=== PATIENT | female | born 1955 | race Caucasian/White ===

== ENCOUNTER 2020-12-10 11:50 | Emergency (ER) | payer MEDICARE, OTHER ==
[~2020-12-10 11:50] MED LIST: FLAGYL500 MG PO; LASIX40 MG PO; LEVOFLOXACIN500 MG PO; NORCO 5-325 TA1 EACH PO; NORFLEX 100 MG100 MG PO; PERCOCET 5/325 T1 EA PO; Voltaren Gel 1 % TOP; ZOFRAN4 MG PO
[2020-12-10 13:45] LABS: HEMOGLOBIN 12.4 gm/dl (12.3-15.3); RED BLOOD COUNT 3.57 M/UL (4.00-5.10); WHITE BLOOD COUNT 11.3 K/UL (4.5-11.0)
[2020-12-10 14:07] LABS: BUN/CREATININE RATIO 8 (0-10)
[2020-12-10] MEDS ORDERED: OMNICEF 300 MG300 MG PO (18:00)
[2020-12-10] MEDS ORDERED: DOXYCYCLINE HY100 MG PO (18:00)
[2020-12-10] MEDS ORDERED: LASIX40 MG PO (18:11)
== END 2020-12-10 19:23 | disposition home or self-care (01) ==
LOC: ER1 11:50
PROVIDERS: Physician Assistant
DX: J18.9 Pneumonia, unspecified organism (principal); L03.116 Cellulitis of left lower limb; L03.115 Cellulitis of right lower limb; E78.5 Hyperlipidemia, unspecified; I11.0 Hypertensive heart disease with heart failure; I50.9 Heart failure, unspecified; E03.9 Hypothyroidism, unspecified; Z20.822 Contact with and (suspected) exposure to COVID-19; F17.200 Nicotine dependence, unspecified, uncomplicated; Z90.710 Acquired absence of both cervix and uterus; Z90.49 Acquired absence of other specified parts of digestive tract; Z88.0 Allergy status to penicillin; Z85.828 Personal history of other malignant neoplasm of skin
CPT/HCPCS: 71045; 80053; 82550; 82553; 83874; 83880; 84439; 84443; 84484; 85025; 85379; 93005; 99285; U0002

== ENCOUNTER → 2021-01-26 | Outpatient (CLI) | payer MEDICARE, OTHER ==
[~2021-01-26] MED LIST changes: +AZITHROMYCIN250 MG PO; +DOXYCYCLINE HY100 MG PO; +OMNICEF 300 MG300 MG PO; +PROVENTIL HFA6.7 GM INH
[2021-01-26 17:37] LABS: RED BLOOD COUNT 3.27 M/UL (4.00-5.10); WHITE BLOOD COUNT 7.4 K/UL (4.5-11.0)
[2021-01-26 18:01] LABS: BUN/CREATININE RATIO 16 (0-10)
== END ==
LOC: LAB 16:55
PROVIDERS: Internal Medicine Gastroenterology
DX: R74.8 Abnormal levels of other serum enzymes (principal)
CPT/HCPCS: 80048; 80076; 85027

== ENCOUNTER 2021-02-07 15:22 | Emergency (ER) | payer MEDICARE, OTHER ==
[~2021-02-07 15:22] MED LIST changes: -AZITHROMYCIN250 MG PO; -PROVENTIL HFA6.7 GM INH
== END 2021-02-07 19:40 | disposition left against medical advice (07) ==
LOC: ER1 15:22
DX: Z53.21 Procedure and treatment not carried out due to patient leaving prior to being seen by health care provider (principal)
CPT/HCPCS: 71045

== ENCOUNTER 2021-02-11 10:15 | Emergency (ER) | payer MEDICARE, OTHER ==
[2021-02-11 11:25] LABS: HEMOGLOBIN 11.3 gm/dl (12.3-15.3); RED BLOOD COUNT 3.48 M/UL (4.00-5.10); WHITE BLOOD COUNT 7.5 K/UL (4.5-11.0)
[2021-02-11 11:40] LABS: BUN/CREATININE RATIO 9 (0-10)
[2021-02-11] MEDS ORDERED: LASIX40 MG PO (12:38)
== END 2021-02-11 12:52 | disposition home or self-care (01) ==
LOC: ER1 10:15
PROVIDERS: Physician Assistant
DX: R06.02 Shortness of breath (principal); I11.0 Hypertensive heart disease with heart failure; I50.9 Heart failure, unspecified; E78.5 Hyperlipidemia, unspecified; Z20.822 Contact with and (suspected) exposure to COVID-19; F17.200 Nicotine dependence, unspecified, uncomplicated; Z88.0 Allergy status to penicillin; Z90.49 Acquired absence of other specified parts of digestive tract; Z90.710 Acquired absence of both cervix and uterus
CPT/HCPCS: 0240U; 36600; 71045; 80053; 82550; 82553; 82803; 83874; 83880; 84484; 85025; 93005; 96374; 99285; J1940

== ENCOUNTER → 2021-02-23 | Outpatient (CLI) | payer MEDICARE, OTHER ==
[~2021-02-23] MED LIST changes: +AZITHROMYCIN250 MG PO; +PROVENTIL HFA6.7 GM INH
== END ==
LOC: HEART 5 14:30
DX: I51.7 Cardiomegaly (principal); R06.02 Shortness of breath
CPT/HCPCS: 93306

== ENCOUNTER 2021-03-23 13:10 | Emergency (ER) | payer MEDICARE, OTHER ==
[~2021-03-23 13:10] MED LIST changes: -AZITHROMYCIN250 MG PO; -PROVENTIL HFA6.7 GM INH
[2021-03-23 15:15] LABS: HEMOGLOBIN 11.3 gm/dl (12.3-15.3); RED BLOOD COUNT 3.76 M/UL (4.00-5.10); WHITE BLOOD COUNT 9.3 K/UL (4.5-11.0)
[2021-03-23 15:38] LABS: BUN/CREATININE RATIO 18 (0-10)
[2021-03-23] MEDS ORDERED: PROVENTIL HFA6.7 GM INH (20:33)
[2021-03-23] MEDS ORDERED: AZITHROMYCIN250 MG PO (20:33)
== END 2021-03-23 21:05 | disposition home or self-care (01) ==
LOC: ER1 13:10
PROVIDERS: Emergency Medicine
DX: R05 Cough (principal); R06.02 Shortness of breath; I11.0 Hypertensive heart disease with heart failure; I50.9 Heart failure, unspecified; Z20.822 Contact with and (suspected) exposure to COVID-19
CPT/HCPCS: 71045; 80053; 81001; 82550; 82553; 83605; 83874; 83880; 84484; 85025; 85379; 87040; 93005; 94640; 94664; 96374; 96375; 99285; J0696; J1940; Q9967; U0002

== ENCOUNTER 2021-09-21 12:46 | Observation (INO) | payer MEDICARE, OTHER ==
[~2021-09-21] VITALS: Ht 162.6 cm; Wt 83.9 kg
[~2021-09-21 12:46] MED LIST changes: +AZITHROMYCIN250 MG PO; +PROVENTIL HFA6.7 GM INH
[2021-09-21 14:26] LABS: BUN/CREATININE RATIO 21 (0-10)
[2021-09-21 14:49] LABS: RED BLOOD COUNT 3.42 M/UL (4.00-5.10); WHITE BLOOD COUNT 6.1 K/UL (4.5-11.0)
[2021-09-21] MEDS ORDERED: MIRTAZAPINE15 MG PO (16:35)
[2021-09-21] MEDS ORDERED: FUROSEMIDE40 MG PO (16:35)
[2021-09-21] MEDS ORDERED: TEMAZEPAM30 MG PO (16:35)
[2021-09-21] MEDS ORDERED: KLONOPIN0.5 MG PO (16:36)
[2021-09-21] MEDS ORDERED: LOSARTAN POTASS50 MG PO (16:36)
[2021-09-21] MEDS ORDERED: PRIMIDONE50 MG PO ×2 (16:37)
[2021-09-21] MEDS ORDERED: BRIVIACT50 MG PO (16:38)
[2021-09-21] MEDS ORDERED: AMLODIPINE BESYL5 MG PO (16:38)
[2021-09-21] MEDS ORDERED: PRAZOSIN HCL1 MG PO (16:38)
[2021-09-21] MEDS ORDERED: ROPINIROLE HCL2 MG PO (16:38)
[2021-09-21] MEDS ORDERED: LEVOTHYROXINE50 MCG PO (16:39)
[2021-09-21] MEDS ORDERED: SIMVASTATIN10 MG PO (16:39)
[2021-09-22] LABS: BUN/CREATININE RATIO 25 (0-10)
--- NOTE | 2021-09-22 03:34 | NUR ---
BLOOD TRANSFUSION ORDER NOT CLEAR ABOUT HOW MANY UNITS TO TRANSFUSE. CALLED DR. ENCISO TO CLARIFY. WAS TOLD TO TRANSFUSE ONE UNIT AND HOLD THE OTHER UNTIL AFTER MORNING LABS.
[2021-09-22 07:25] LABS: HEMOGLOBIN 7.7 gm/dl (12.3-15.3); RED BLOOD COUNT 3.72 M/UL (4.00-5.10); WHITE BLOOD COUNT 5.9 K/UL (4.5-11.0)
[2021-09-22 08:20] LABS: BUN/CREATININE RATIO 29 (0-10)
[2021-09-22 14:54] LABS: BUN/CREATININE RATIO 21 (0-10)
[2021-09-23 06:54] LABS: HEMOGLOBIN 8.2 gm/dl (12.3-15.3); RED BLOOD COUNT 3.98 M/UL (4.00-5.10); WHITE BLOOD COUNT 5.5 K/UL (4.5-11.0)
[2021-09-23 08:08] LABS: BUN/CREATININE RATIO 19 (0-10)
--- NOTE | 2021-09-23 10:49 | NUR ---
RAINEY CATH REMOVED. PATIENT TOLERATED WELL
== END 2021-09-23 12:12 | disposition home or self-care (01) ==
LOC: ER1 12:46 → M/S 15:36 → CDU 15:36 → M/S 15:36
PROVIDERS: Physician Assistant; Physician Assistant Medical; ADMIT Internal Medicine
DX: D50.9 Iron deficiency anemia, unspecified (principal); D45 Polycythemia vera; E87.1 Hypo-osmolality and hyponatremia; I11.0 Hypertensive heart disease with heart failure; I50.32 Chronic diastolic (congestive) heart failure; I27.20 Pulmonary hypertension, unspecified; E78.5 Hyperlipidemia, unspecified; F17.210 Nicotine dependence, cigarettes, uncomplicated; G40.909 Epilepsy, unspecified, not intractable, without status epilepticus; Z20.822 Contact with and (suspected) exposure to COVID-19; Z90.49 Acquired absence of other specified parts of digestive tract; Z90.710 Acquired absence of both cervix and uterus; Z93.3 Colostomy status; Z90.13 Acquired absence of bilateral breasts and nipples; Z98.890 Other specified postprocedural states; Z88.0 Allergy status to penicillin; Z91.040 Latex allergy status; Z79.899 Other long term (current) drug therapy
CPT/HCPCS: ECHO; 36415; 36430; 36600; 71045; 76705; 80048; 80053; 81001; 82550; 82553; 82607; 82728; 82803; 83540; 83550; 83735; 83874; 83880; 84295; 84484; 85025; 85027; 86850; 86900; 86901; 86920; 87086; 93005; 93306; 94664; 94760; 96374; 96375; 99285; G0378; J1940; J2060; J7030; P9016; U0002

== ENCOUNTER 2021-10-05 14:07 | Inpatient (IN) | payer MEDICARE, OTHER ==
[~2021-10-05] VITALS: Ht 162.6 cm; Wt 85.3 kg
[~2021-10-05 14:07] MED LIST changes: +AMLODIPINE BESYL5 MG PO; +BRIVIACT50 MG PO; +FUROSEMIDE40 MG PO; +KLONOPIN0.5 MG PO; +LEVOTHYROXINE50 MCG PO; +LOSARTAN POTASS50 MG PO; +MIRTAZAPINE15 MG PO; +PRAZOSIN HCL1 MG PO; +PRIMIDONE50 MG PO; +ROPINIROLE HCL2 MG PO; +SIMVASTATIN10 MG PO; +TEMAZEPAM30 MG PO
[2021-10-05 14:51] LABS: HEMOGLOBIN 7.1 gm/dl (12.3-15.3); RED BLOOD COUNT 3.48 M/UL (4.00-5.10); WHITE BLOOD COUNT 6.6 K/UL (4.5-11.0)
[2021-10-05 15:06] LABS: BUN/CREATININE RATIO 20 (0-10)
[2021-10-05] MEDS ORDERED: CHOLESTYRAMINE P4 GM PO (16:41)
[2021-10-06 04:24] LABS: HEMOGLOBIN 7.8 gm/dl (12.3-15.3); RED BLOOD COUNT 3.65 M/UL (4.00-5.10); WHITE BLOOD COUNT 6.6 K/UL (4.5-11.0)
[2021-10-06 04:59] LABS: BUN/CREATININE RATIO 22 (0-10)
[2021-10-07 06:56] LABS: HEMOGLOBIN 8.1 gm/dl (12.3-15.3); RED BLOOD COUNT 3.89 M/UL (4.00-5.10); WHITE BLOOD COUNT 7.2 K/UL (4.5-11.0)
[2021-10-07] MEDS ORDERED: DOXYCYCLINE HY100 M2 PO (10:10)
[2021-10-07] MEDS ORDERED: FERROUS SULFAT325 M2 PO (10:10)
[2021-10-07] MEDS ORDERED: FUROSEMIDE40 MG PO ×2 (10:13→10:14)
--- NOTE | 2021-10-07 12:09 | NUR ---
report called to [facility].
[2021-10-08 08:11] LABS: CREATININE, URINE 27.1 mg/dL (Not Estab.)
== END 2021-10-07 13:06 | disposition home health service (06) | DRG 811 ==
LOC: ER1 14:07 → CDU 15:33 → PROG CARE 16:46 → M/S 10-06 23:08
PROVIDERS: Emergency Medicine; Internal Medicine Nephrology; ADMIT Internal Medicine
PROC: 30233N1 Transfusion of Nonautologous Red Blood Cells into Peripheral Vein, Percutaneous Approach (ICD-10-PCS; principal; 2021-10-05)
DX: D50.9 Iron deficiency anemia, unspecified (principal); I50.33 Acute on chronic diastolic (congestive) heart failure; E87.1 Hypo-osmolality and hyponatremia; L03.317 Cellulitis of buttock; Z20.822 Contact with and (suspected) exposure to COVID-19; N17.9 Acute kidney failure, unspecified; I13.0 Hypertensive heart and chronic kidney disease with heart failure and stage 1 through stage 4 chronic kidney disease, or unspecified chronic kidney disease; N18.9 Chronic kidney disease, unspecified; E03.9 Hypothyroidism, unspecified; E78.5 Hyperlipidemia, unspecified; R53.81 Other malaise; F17.210 Nicotine dependence, cigarettes, uncomplicated; G40.909 Epilepsy, unspecified, not intractable, without status epilepticus; D75.1 Secondary polycythemia; Z88.0 Allergy status to penicillin; Z90.13 Acquired absence of bilateral breasts and nipples; Z90.710 Acquired absence of both cervix and uterus; Z93.3 Colostomy status; Z90.49 Acquired absence of other specified parts of digestive tract; Z79.82 Long term (current) use of aspirin; Z85.038 Personal history of other malignant neoplasm of large intestine; Z82.49 Family history of ischemic heart disease and other diseases of the circulatory system; Z72.89 Other problems related to lifestyle; Z83.49 Family history of other endocrine, nutritional and metabolic diseases; Z91.040 Latex allergy status
CPT/HCPCS: 36415; 36430; 71045; 80048; 80053; 81001; 82043; 82550; 82553; 82570; 82607; 82728; 82746; 83036; 83540; 83550; 83605; 83735; 83874; 83880; 84100; 84156; 84439; 84443; 84484; 85018; 85025; 85027; 85610; 85652; 86850; 86900; 86901; 86920; 87040; 93005; 94640; 94664; 94760; 96374; 97162; 97165; 99285; J1756; J1940; J7030; P9016; Q9967; U0002

== ENCOUNTER 2021-11-29 12:50 | Emergency (ER) | payer MEDICARE, OTHER ==
[~2021-11-29 12:50] MED LIST changes: +ARTIFICIAL TEAR15 M6 EYEBOTH; +ASPIRIN EC81 MG PO; +BENZONATATE100 MG PO; +CHOLESTYRAMINE P4 GM PO; +COMBIVENT RESPIM4 GM INH; +DOXYCYCLINE HY100 M2 PO; +FERROUS SULFAT325 M2 PO; +LEVOFLOXACIN750 MG PO; +PREDNISONE20 MG PO; +SPIRIVA HANDIH18 MCG INH
[2021-11-29 13:57] LABS: HEMOGLOBIN 9.5 gm/dl (12.3-15.3); RED BLOOD COUNT 3.76 M/UL (4.00-5.10); WHITE BLOOD COUNT 12.4 K/UL (4.5-11.0)
[2021-11-29 14:26] LABS: BUN/CREATININE RATIO 17 (0-10)
== END 2021-11-29 20:30 | disposition home or self-care (01) ==
LOC: ER1 12:50
PROVIDERS: Physician Assistant
DX: I11.0 Hypertensive heart disease with heart failure (principal); I50.9 Heart failure, unspecified; Z99.81 Dependence on supplemental oxygen; J44.9 Chronic obstructive pulmonary disease, unspecified; Z20.822 Contact with and (suspected) exposure to COVID-19; E78.5 Hyperlipidemia, unspecified; F17.200 Nicotine dependence, unspecified, uncomplicated; Z88.0 Allergy status to penicillin; Z91.040 Latex allergy status
CPT/HCPCS: 36600; 71045; 80053; 82550; 82553; 82803; 83874; 83880; 84484; 85025; 93005; 96374; 99285; J1940; Q9967; U0002

== ENCOUNTER 2021-12-08 11:23 | Observation (INO) | payer MEDICARE, OTHER ==
[~2021-12-08] VITALS: Ht 162.6 cm; Wt 89.4 kg
[~2021-12-08 11:23] MED LIST changes: -CHOLESTYRAMINE P4 GM PO
[2021-12-08 12:29] LABS: HEMOGLOBIN 9.7 gm/dl (12.3-15.3); RED BLOOD COUNT 3.85 M/UL (4.00-5.10); WHITE BLOOD COUNT 5.6 K/UL (4.5-11.0)
[2021-12-08 12:56] LABS: BUN/CREATININE RATIO 18 (0-10)
[2021-12-08] MEDS ORDERED: CHOLESTYRAMINE P4 GM PO (16:41)
[2021-12-08] MEDS ORDERED: NITROSTAT0.4 MG SL (18:28)
[2021-12-08] MEDS ORDERED: TORSEMIDE20 MG PO (18:29)
[2021-12-08] MEDS ORDERED: SPIRONOLACTONE50 MG PO (18:29)
[2021-12-08] MEDS ORDERED: LEVOTHYROXINE25 MCG PO (18:30)
[2021-12-08] MEDS ORDERED: SYMBICORT 160-1 INHA INH (18:30)
[2021-12-08] MEDS ORDERED: IPRAT-ALBUT 0.5-3 ML NEB (18:31)
[2021-12-08] MEDS ORDERED: SPIRIVA18 MCG INH (18:32)
[2021-12-08] MEDS ORDERED: OMEPRAZOLE40 MG PO (18:32)
[2021-12-08] MEDS ORDERED: PROZAC40 MG PO (18:32)
[2021-12-08] MEDS ORDERED: SIMVASTATIN10 MG PO (18:33)
[2021-12-09 07:39] LABS: HEMOGLOBIN 9.1 gm/dl (12.3-15.3); RED BLOOD COUNT 3.7 M/UL (4.00-5.10); WHITE BLOOD COUNT 6.7 K/UL (4.5-11.0)
[2021-12-09 08:14] LABS: BUN/CREATININE RATIO 24 (0-10)
--- NOTE | 2021-12-09 15:38 | NUR ---
12/09/21 1535 report called to [facility] to be transferred to [id number]
[2021-12-10 05:32] LABS: BUN/CREATININE RATIO 27 (0-10)
[2021-12-11 05:53] LABS: BUN/CREATININE RATIO 26 (0-10)
[2021-12-11] MEDS ORDERED: DECADRON6 MG PO (11:53)
== END 2021-12-11 14:00 | disposition home or self-care (01) ==
LOC: ER1 11:23 → 3 EAST 16:50 → CDU 16:50 → 3 EAST 23:57 → M/S 12-09 15:49
PROVIDERS: Internal Medicine; Physician Assistant; ADMIT Family Medicine
DX: U07.1 COVID-19 (principal); J20.9 Acute bronchitis, unspecified; J44.0 Chronic obstructive pulmonary disease with (acute) lower respiratory infection; J44.1 Chronic obstructive pulmonary disease with (acute) exacerbation; J96.21 Acute and chronic respiratory failure with hypoxia; E03.9 Hypothyroidism, unspecified; I11.0 Hypertensive heart disease with heart failure; I50.31 Acute diastolic (congestive) heart failure; K21.9 Gastro-esophageal reflux disease without esophagitis; G25.81 Restless legs syndrome; F41.9 Anxiety disorder, unspecified; G89.4 Chronic pain syndrome; E78.5 Hyperlipidemia, unspecified; Z79.82 Long term (current) use of aspirin; Z79.899 Other long term (current) drug therapy; Z88.0 Allergy status to penicillin; Z91.040 Latex allergy status
CPT/HCPCS: 36415; 36600; 71045; 80048; 80053; 81001; 82550; 82553; 82803; 83874; 83880; 84484; 85025; 85379; 93005; 94640; 94664; 94760; 96372; 96374; 96375; 96376; 99285; G0378; J0248; J1100; J1650; J1940; J7030; U0002

== ENCOUNTER 2022-01-05 15:23 | Inpatient (IN) | payer MEDICARE, OTHER ==
[~2022-01-05] VITALS: Ht 162.6 cm; Wt 90.7 kg
[~2022-01-05 15:23] MED LIST changes: +CHOLESTYRAMINE P4 GM PO; +DECADRON6 MG PO; +IPRAT-ALBUT 0.5-3 ML NEB; -KLONOPIN0.5 MG PO; +LEVOTHYROXINE25 MCG PO; +MEDROL4 MG PO; +NITROSTAT0.4 MG SL; +OMEPRAZOLE40 MG PO; +PROZAC40 MG PO; -ROPINIROLE HCL2 MG PO; +SPIRONOLACTONE50 MG PO; +TORSEMIDE20 MG PO
[2022-01-05 16:17] LABS: RED BLOOD COUNT 3.44 M/UL (4.00-5.10); WHITE BLOOD COUNT 12.3 K/UL (4.5-11.0)
[2022-01-05 16:41] LABS: BUN/CREATININE RATIO 22 (0-10)
[2022-01-06 01:51] LABS: HEMOGLOBIN 8.3 gm/dl (12.3-15.3); RED BLOOD COUNT 3.59 M/UL (4.00-5.10); WHITE BLOOD COUNT 10.8 K/UL (4.5-11.0)
[2022-01-06] MEDS ORDERED: DOXYCYCLINE HY100 M2 PO (13:03)
[2022-01-06] MEDS ORDERED: PREDNISONE5 MG PO (13:03)
[2022-01-06] MEDS ORDERED: BUDESONIDE0.5 MG/2 M NEB (13:03)
[2022-01-06] MEDS ORDERED: FERROUS SULFAT325 M2 PO (13:08)
[2022-02-13] MEDS ORDERED: COMBIVENT RESPIM4 GM INH (13:59)
== END 2022-01-06 16:40 | disposition home health service (06) | DRG 291 ==
LOC: ER1 15:23 → CDU 18:03 → M/S 20:02
PROVIDERS: Preventive Medicine Occupational Medicine; ADMIT Internal Medicine
DX: I11.0 Hypertensive heart disease with heart failure (principal); J96.01 Acute respiratory failure with hypoxia; I50.33 Acute on chronic diastolic (congestive) heart failure; J12.9 Viral pneumonia, unspecified; U07.1 COVID-19; J44.1 Chronic obstructive pulmonary disease with (acute) exacerbation; D72.828 Other elevated white blood cell count; T38.0X5A Adverse effect of glucocorticoids and synthetic analogues, initial encounter; M54.9 Dorsalgia, unspecified; R07.89 Other chest pain; K52.9 Noninfective gastroenteritis and colitis, unspecified; D50.9 Iron deficiency anemia, unspecified; F41.9 Anxiety disorder, unspecified; F32.A Depression, unspecified; K21.9 Gastro-esophageal reflux disease without esophagitis; E78.5 Hyperlipidemia, unspecified; G25.81 Restless legs syndrome; Z79.01 Long term (current) use of anticoagulants; Z79.82 Long term (current) use of aspirin; Z90.49 Acquired absence of other specified parts of digestive tract; Z90.13 Acquired absence of bilateral breasts and nipples; Z90.710 Acquired absence of both cervix and uterus; Z82.49 Family history of ischemic heart disease and other diseases of the circulatory system; Z88.0 Allergy status to penicillin; Z91.040 Latex allergy status; Z72.89 Other problems related to lifestyle; Z87.891 Personal history of nicotine dependence
CPT/HCPCS: 0241U; 36415; 36600; 71045; 72131; 76705; 80053; 81001; 82550; 82553; 82728; 82803; 83540; 83550; 83605; 83690; 83874; 83880; 84484; 85025; 85652; 86140; 87086; 93005; 94640; 94664; 94760; 96374; 96375; 96376; 97110; 97161; 99285; C9113; J1170; J1650; J1756; J2930; Q9967

== ENCOUNTER 2022-01-24 12:58 | Inpatient (IN) | payer MEDICARE, OTHER ==
[~2022-01-24] VITALS: Ht 162.6 cm; Wt 92.7 kg
[~2022-01-24 12:58] MED LIST changes: +BUDESONIDE0.5 MG/2 M NEB; +PREDNISONE5 MG PO; +ROPINIROLE HCL2 MG PO; +SYMBICORT 160-1 INHA INH
[2022-01-24 13:38] LABS: HEMOGLOBIN 8.1 gm/dl (12.3-15.3); RED BLOOD COUNT 3.63 M/UL (4.00-5.10); WHITE BLOOD COUNT 6.3 K/UL (4.5-11.0)
[2022-01-24] MEDS ORDERED: COMBIVENT RESPIM4 GM INH (13:59)
[2022-01-24 14:09] LABS: BUN/CREATININE RATIO 16 (0-10)
[2022-01-24] MEDS ORDERED: KLONOPIN0.5 MG PO (16:36)
[2022-01-24] MEDS ORDERED: DEMADEX 20 MG T20 MG PO (17:38)
[2022-01-24] MEDS ORDERED: RESTORIL30 MG PO (17:39)
[2022-01-24] MEDS ORDERED: COZAAR50 MG PO (17:41)
[2022-01-24] MEDS ORDERED: FLONASE 0.05% N16 GM (17:43)
[2022-01-24] MEDS ORDERED: MULTI-VITAMIN1 EACH PO (17:45)
[2022-01-24] MEDS ORDERED: MINIPRES CAP 2 M2 MG PO (17:46)
[2022-01-24] MEDS ORDERED: PRESERVISION A1 EAC1 PO (17:46)
[2022-01-24] MEDS ORDERED: CHOLESTYRAMINE P4 GM PO (17:47)
[2022-01-25 08:26] LABS: HEMOGLOBIN 7.6 gm/dl (12.3-15.3); RED BLOOD COUNT 3.42 M/UL (4.00-5.10); WHITE BLOOD COUNT 6.5 K/UL (4.5-11.0)
[2022-01-26 02:53] LABS: HEMOGLOBIN 8.5 gm/dl (12.3-15.3); WHITE BLOOD COUNT 7.3 K/UL (4.5-11.0)
[2022-01-26 02:55] LABS: RED BLOOD COUNT 3.78 M/UL (4.00-5.10)
[2022-01-27 02:08] LABS: HEMOGLOBIN 8.7 gm/dl (12.3-15.3); RED BLOOD COUNT 3.86 M/UL (4.00-5.10); WHITE BLOOD COUNT 7.4 K/UL (4.5-11.0)
[2022-01-28 03:07] LABS: HEMOGLOBIN 9.3 gm/dl (12.3-15.3); RED BLOOD COUNT 4.14 M/UL (4.00-5.10); WHITE BLOOD COUNT 8.5 K/UL (4.5-11.0)
[2022-01-29 02:24] LABS: RED BLOOD COUNT 3.99 M/UL (4.00-5.10); WHITE BLOOD COUNT 7.7 K/UL (4.5-11.0)
[2022-01-29 06:41] LABS: CREATININE, URINE 29.1 mg/dL (Not Estab.); MICROALB/CREAT RATIO <10 (0-29)
[2022-01-29] MEDS ORDERED: FERROUS SULFAT325 M2 PO (18:22)
[2022-01-29] MEDS ORDERED: METOLAZONE10 MG PO (18:50)
[2022-01-31 10:13] LABS: ANTIGLOMERULAR BM AB 3 units (0-20)
[2022-01-31 12:12] LABS: ANTIMYELOPEROXIDASE (MPO) ABS <9.0 U/mL (0.0-9.0); ANTIPROTEINASE 3 (PR-3) ABS <3.5 U/mL (0.0-3.5); ATYPICAL PANCA <1:20 titer (Neg:<1:20); CYTOPLASMIC (C-ANCA) <1:20 titer (Neg:<1:20); PERINUCLEAR (P-ANCA) <1:20 titer (Neg:<1:20)
== END 2022-01-29 20:20 | disposition home or self-care (01) | DRG 291 ==
LOC: ER1 12:58 → CDU 15:37 → PROG CARE 17:55
PROVIDERS: Internal Medicine Nephrology; Physician Assistant; ADMIT Internal Medicine Infectious Disease
DX: I13.0 Hypertensive heart and chronic kidney disease with heart failure and stage 1 through stage 4 chronic kidney disease, or unspecified chronic kidney disease (principal); I50.33 Acute on chronic diastolic (congestive) heart failure; E87.3 Alkalosis; E87.6 Hypokalemia; D50.9 Iron deficiency anemia, unspecified; E03.9 Hypothyroidism, unspecified; N18.31 Chronic kidney disease, stage 3a; G25.81 Restless legs syndrome; E78.5 Hyperlipidemia, unspecified; G40.909 Epilepsy, unspecified, not intractable, without status epilepticus; Z90.13 Acquired absence of bilateral breasts and nipples; Z90.710 Acquired absence of both cervix and uterus; Z90.49 Acquired absence of other specified parts of digestive tract; Z98.890 Other specified postprocedural states; Z98.49 Cataract extraction status, unspecified eye; Z88.0 Allergy status to penicillin; Z91.040 Latex allergy status; Z82.49 Family history of ischemic heart disease and other diseases of the circulatory system; Z87.891 Personal history of nicotine dependence; K74.60 Unspecified cirrhosis of liver; J44.9 Chronic obstructive pulmonary disease, unspecified
CPT/HCPCS: 36415; 36600; 71045; 80048; 80053; 82043; 82272; 82550; 82553; 82570; 82728; 82803; 83520; 83540; 83550; 83605; 83735; 83880; 84439; 84443; 84484; 85025; 86256; 87040; 93005; 93970; 94640; 94664; 94760; 96374; 99285; J1205; J1756; J1940; P9047; U0002

== ENCOUNTER → 2022-02-11 | Outpatient (CLI) | payer MEDICARE, OTHER ==
[~2022-02-11] MED LIST changes: +COZAAR50 MG PO; +DEMADEX 20 MG T20 MG PO; +FLONASE 0.05% N16 GM; +KLONOPIN0.5 MG PO; +METOLAZONE10 MG PO; +MINIPRES CAP 2 M2 MG PO; +MULTI-VITAMIN1 EACH PO; +PRESERVISION A1 EAC1 PO; +PRESERVISION A1 EACH PO; +RESTORIL30 MG PO; -ROPINIROLE HCL2 MG PO; +ROPINIROLE HCL3 MG PO
== END ==
LOC: LAB 14:05
PROVIDERS: Internal Medicine Infectious Disease
DX: I50.33 Acute on chronic diastolic (congestive) heart failure (principal)
CPT/HCPCS: 80048

== ENCOUNTER 2022-02-13 15:19 | Inpatient (IN) | payer MEDICARE, OTHER ==
[~2022-02-13] VITALS: Ht 162.6 cm; Wt 92.5 kg
[~2022-02-13 15:19] MED LIST changes: -FLONASE 0.05% N16 GM; -PRESERVISION A1 EACH PO; -ROPINIROLE HCL3 MG PO; -SYMBICORT 160-1 INHA INH
[2022-02-13] MEDS ORDERED: ROPINIROLE HCL3 MG PO (16:38)
[2022-02-13] MEDS ORDERED: FLONASE 0.05% N16 GM (17:43)
[2022-02-13] MEDS ORDERED: SYMBICORT 160-1 INHA INH (18:30)
[2022-02-13] MEDS ORDERED: SPIRIVA HANDIH18 MCG INH (18:32)
[2022-02-13] MEDS ORDERED: FERROUS SULFAT325 M2 PO (21:47)
[2022-02-13] MEDS ORDERED: ASPIRIN EC81 MG PO (21:49)
[2022-02-13] MEDS ORDERED: PRESERVISION A1 EACH PO (21:50)
[2022-02-14 07:15] LABS: HEMOGLOBIN 10.6 gm/dl (12.3-15.3); RED BLOOD COUNT 4.39 M/UL (4.00-5.10); WHITE BLOOD COUNT 8.8 K/UL (4.5-11.0)
[2022-02-14 07:30] LABS: BUN/CREATININE RATIO 26 (0-10)
--- NOTE | 2022-02-14 08:08 | NUR ---
PATIENT IS HAVING PROBLEMS WITH POTASSIUM IV, STATED IT IS BURNING HER UP, I DECREASED THE RATE TO 50ML/HR AND CALLED DR MATIAS WHO SAID IT WAS OK TO GIVE HER P.O POTASSIUM FOR LAB OF 2.4
[2022-02-16 03:32] LABS: HEMOGLOBIN 10.8 gm/dl (12.3-15.3); RED BLOOD COUNT 4.46 M/UL (4.00-5.10); WHITE BLOOD COUNT 10.3 K/UL (4.5-11.0)
[2022-02-16] MEDS ORDERED: K-TAB ER10 MEQ PO (10:16)
== END 2022-02-16 12:50 | disposition home or self-care (01) | DRG 291 ==
LOC: M/S 17:17
PROVIDERS: Internal Medicine; Internal Medicine Nephrology; ADMIT Internal Medicine
DX: I11.0 Hypertensive heart disease with heart failure (principal); I50.33 Acute on chronic diastolic (congestive) heart failure; E87.1 Hypo-osmolality and hyponatremia; Z20.822 Contact with and (suspected) exposure to COVID-19; R18.8 Other ascites; E87.6 Hypokalemia; D45 Polycythemia vera; D50.0 Iron deficiency anemia secondary to blood loss (chronic); E66.9 Obesity, unspecified; J44.9 Chronic obstructive pulmonary disease, unspecified; F41.9 Anxiety disorder, unspecified; E78.5 Hyperlipidemia, unspecified; G25.81 Restless legs syndrome; G40.909 Epilepsy, unspecified, not intractable, without status epilepticus; K74.60 Unspecified cirrhosis of liver; F32.A Depression, unspecified; E03.9 Hypothyroidism, unspecified; K59.00 Constipation, unspecified; Z90.13 Acquired absence of bilateral breasts and nipples; Z90.49 Acquired absence of other specified parts of digestive tract; Z87.19 Personal history of other diseases of the digestive system; Z68.37 Body mass index [BMI] 37.0-37.9, adult; Z90.710 Acquired absence of both cervix and uterus; Z98.42 Cataract extraction status, left eye; Z98.41 Cataract extraction status, right eye; Z82.49 Family history of ischemic heart disease and other diseases of the circulatory system; Z83.3 Family history of diabetes mellitus; Z87.891 Personal history of nicotine dependence
CPT/HCPCS: 36415; 80048; 82550; 82553; 82728; 83540; 83550; 83735; 84132; 84484; 85025; 94640; 94760; J1205; J1650; J1756; J1940; J2405; J3480; J7030; U0002

== ENCOUNTER → 2022-02-23 | Outpatient (CLI) | payer MEDICARE, OTHER ==
[~2022-02-23] VITALS: Ht 162.6 cm; Wt 95.3 kg
[~2022-02-23] MED LIST changes: +FLONASE 0.05% N16 GM; +K-TAB ER10 MEQ PO; +LORATADINE10 MG PO; +PRESERVISION A1 EACH PO; +ROPINIROLE HCL3 MG PO; +SYMBICORT 160-1 INHA INH
[2022-02-23 17:35] LABS: BUN/CREATININE RATIO 44 (0-10)
== END ==
LOC: ER1 14:02 → EDSTATUS 14:11 → EROP 14:16
PROVIDERS: Internal Medicine Nephrology
DX: I50.33 Acute on chronic diastolic (congestive) heart failure (principal)
CPT/HCPCS: 80048; 82728; 83540; 83550; 96365; 96366; 96375; J1205; J1940

== ENCOUNTER 2022-02-27 13:33 | Inpatient (IN) | payer MEDICARE, OTHER ==
[~2022-02-27] VITALS: Ht 162.6 cm; Wt 100.4 kg
[~2022-02-27 13:33] MED LIST changes: -LORATADINE10 MG PO
[2022-02-27 14:37] LABS: HEMOGLOBIN 11.6 gm/dl (12.3-15.3); RED BLOOD COUNT 4.51 M/UL (4.00-5.10); WHITE BLOOD COUNT 10.5 K/UL (4.5-11.0)
[2022-02-27 15:23] LABS: BUN/CREATININE RATIO 44 (0-10)
[2022-02-27] MEDS ORDERED: SYMBICORT 160-1 INHA INH (18:37)
[2022-02-27] MEDS ORDERED: LORATADINE10 MG PO (18:37)
[2022-02-27] MEDS ORDERED: MIRTAZAPINE15 MG PO (18:37)
[2022-02-28 07:11] LABS: BUN/CREATININE RATIO 40 (0-10)
[2022-03-01 06:57] LABS: HEMOGLOBIN 11.7 gm/dl (12.3-15.3); RED BLOOD COUNT 4.55 M/UL (4.00-5.10)
[2022-03-01 07:01] LABS: WHITE BLOOD COUNT 7.3 K/UL (4.5-11.0)
[2022-03-01 07:14] LABS: BUN/CREATININE RATIO 32 (0-10)
--- NOTE | 2022-03-02 06:03 | NUR ---
Patient weighed by standing scale, 209.4 pounds. Patient intake this shift 834 mls and output is 1100 mls with one bowel movement. Patient weight on 03/01/2022 210.2 lbs by standing scale. Patient total 24 hour input was 2074 mls and output was 2820 mls with one bowel movement. Will continue strict intake and output for patient. Admission weight 213.0 by standing scale, total weight lost as of 03/02/22 0600 is 3.6 pounds.
--- NOTE | 2022-03-02 10:56 | NUR ---
informed dr. liu of what patient stated of abdominal pain and when she had this type of pain before it was related to her intestine busted on 2007. dr. liu acknowledged and she will write order for abd xray.
--- NOTE | 2022-03-02 13:38 | NUR ---
patient resting comfortably at this time.
--- NOTE | 2022-03-03 05:55 | NUR ---
Patient daily weight 207.4 pounds. Patient daily weigh 03/02/22 was 209.4 pounds with a loss of 2 pounds. Patient 24 hour total intake 1980 mls and output of 1050 mls.
[2022-03-03] MEDS ORDERED: POLYETHYLENE GL17 GM PO (12:11)
[2022-03-03] MEDS ORDERED: ENTRESTO 24 MG1 EACH PO (12:11)
== END 2022-03-05 17:18 | disposition home or self-care (01) | DRG 682 ==
LOC: ER1 13:33 → CDU 16:12 → M/S 19:01
PROVIDERS: Internal Medicine Nephrology; Student in an Organized Health Care Education/Training Program; ADMIT Internal Medicine
PROC: B24BZZZ Ultrasonography of Heart with Aorta (ICD-10-PCS; principal; 2022-02-28)
DX: N17.9 Acute kidney failure, unspecified (principal); I50.33 Acute on chronic diastolic (congestive) heart failure; J96.21 Acute and chronic respiratory failure with hypoxia; Z20.822 Contact with and (suspected) exposure to COVID-19; I13.0 Hypertensive heart and chronic kidney disease with heart failure and stage 1 through stage 4 chronic kidney disease, or unspecified chronic kidney disease; D62 Acute posthemorrhagic anemia; E87.3 Alkalosis; E87.1 Hypo-osmolality and hyponatremia; G47.00 Insomnia, unspecified; N18.31 Chronic kidney disease, stage 3a; K59.00 Constipation, unspecified; E78.5 Hyperlipidemia, unspecified; G40.909 Epilepsy, unspecified, not intractable, without status epilepticus; G25.81 Restless legs syndrome; D45 Polycythemia vera; G89.29 Other chronic pain; E87.6 Hypokalemia; E66.9 Obesity, unspecified; R53.81 Other malaise; I08.1 Rheumatic disorders of both mitral and tricuspid valves; I27.20 Pulmonary hypertension, unspecified; F17.210 Nicotine dependence, cigarettes, uncomplicated; Z90.13 Acquired absence of bilateral breasts and nipples; Z90.710 Acquired absence of both cervix and uterus; Z90.49 Acquired absence of other specified parts of digestive tract; Z82.49 Family history of ischemic heart disease and other diseases of the circulatory system; Z91.040 Latex allergy status; Z68.36 Body mass index [BMI] 36.0-36.9, adult
CPT/HCPCS: ECHO; 36415; 36600; 71045; 74018; 80048; 80053; 82550; 82553; 82728; 82803; 83540; 83550; 83735; 83880; 84132; 84484; 85025; 85027; 93005; 93306; 93971; 96374; 99285; J1120; J1205; J1756; J1940; J2405; J2550; J3475; J7030; P9047; U0002

== ENCOUNTER 2022-03-12 14:34 | Emergency (ER) | payer MEDICARE, OTHER ==
[~2022-03-12 14:34] MED LIST changes: +ENTRESTO 24 MG1 EACH PO; +LORATADINE10 MG PO; +POLYETHYLENE GL17 GM PO
[2022-03-12 16:12] LABS: HEMOGLOBIN 12.5 gm/dl (12.3-15.3); RED BLOOD COUNT 4.62 M/UL (4.00-5.10); WHITE BLOOD COUNT 7.2 K/UL (4.5-11.0)
== END 2022-03-12 18:19 | disposition home or self-care (01) ==
LOC: ER1 14:34
PROVIDERS: Physician Assistant
DX: I50.9 Heart failure, unspecified (principal); Z88.0 Allergy status to penicillin
CPT/HCPCS: 71045; 71275; 80053; 81001; 82550; 82553; 82728; 83540; 83550; 83880; 84484; 85025; 93005; 99285

== ENCOUNTER 2022-03-24 12:53 | Inpatient (IN) | payer MEDICARE, OTHER ==
[~2022-03-24] VITALS: Ht 162.6 cm; Wt 93.4 kg
[~2022-03-24 12:53] MED LIST changes: -COZAAR 50MG TAB50 MG PO; -HYDROCODON-ACE1 EAC4 PO; -JARDIANCE25 MG PO; -MYCOSTATIN OINT15 GM TOP; -NORVASC5 MG PO; -POTASSIUM CHLO20 ME2 PO; -TORSEMIDE100 MG PO
[2022-03-24 14:32] LABS: HEMOGLOBIN 13.4 gm/dl (12.3-15.3); RED BLOOD COUNT 4.67 M/UL (4.00-5.10); WHITE BLOOD COUNT 11.9 K/UL (4.5-11.0)
[2022-03-24 14:58] LABS: BUN/CREATININE RATIO 67 (0-10)
[2022-03-24 18:02] LABS: BUN/CREATININE RATIO 69 (0-10)
[2022-03-25 00:18] LABS: BUN/CREATININE RATIO 61 (0-10)
[2022-03-25 06:38] LABS: HEMOGLOBIN 12.5 gm/dl (12.3-15.3); RED BLOOD COUNT 4.41 M/UL (4.00-5.10); WHITE BLOOD COUNT 9.2 K/UL (4.5-11.0)
[2022-03-25 07:29] LABS: BUN/CREATININE RATIO 58 (0-10)
[2022-03-25] MEDS ORDERED: AZITHROMYCIN250 MG PO (10:10)
[2022-03-25] MEDS ORDERED: HYDROCODON-ACE1 EAC4 PO (10:10)
[2022-03-25] MEDS ORDERED: NORVASC5 MG PO (10:11)
[2022-03-25] MEDS ORDERED: MYCOSTATIN OINT15 GM TOP (10:11)
[2022-03-25] MEDS ORDERED: COZAAR 50MG TAB50 MG PO (10:12)
[2022-03-25] MEDS ORDERED: METOLAZONE10 MG PO (10:13)
[2022-03-25] MEDS ORDERED: JARDIANCE25 MG PO (10:14)
[2022-03-25] MEDS ORDERED: TORSEMIDE100 MG PO (10:15)
[2022-03-25] MEDS ORDERED: POTASSIUM CHLO20 ME2 PO (10:17)
[2022-03-25 12:04] LABS: BUN/CREATININE RATIO 55 (0-10)
[2022-03-25 19:05] LABS: BUN/CREATININE RATIO 45 (0-10)
[2022-03-25 23:23] LABS: BUN/CREATININE RATIO 42 (0-10)
[2022-03-26 03:39] LABS: RED BLOOD COUNT 4.23 M/UL (4.00-5.10); WHITE BLOOD COUNT 8.7 K/UL (4.5-11.0)
[2022-03-26 03:52] LABS: BUN/CREATININE RATIO 50 (0-10)
--- NOTE | 2022-03-26 16:46 | NUR ---
PT IS A FALL RISK AND REFUSING TO ALLOW STAFF TO CHANGE HER GOWN OR TURN ON THE BED ALARM. DOCTOR AWARE.
[2022-03-27 04:12] LABS: RED BLOOD COUNT 4.21 M/UL (4.00-5.10); WHITE BLOOD COUNT 8.5 K/UL (4.5-11.0)
[2022-03-27 04:42] LABS: BUN/CREATININE RATIO 35 (0-10)
--- NOTE | 2022-03-27 08:47 | NUR ---
HAD CONVRSATION WITH PATIENT REMINDING HER TO CALL OUT IF SHE NEEDED TO GET UP. SHE SAID SHE WOULD CALL OUT IF SHE NEEDED HELP. SHE WAS TOLD SHE NEEDED TO CALL OUT IF SHE WANTED TO GET UP, WE DIDN'T WANT HER TO FALL. SHE SAID SHE HOPED SHE NEVER FALLS AGAIN AND REITERATED SHE WOULD CALL OUT IF SHE NEEDED HELP. SHE ALSO REFUSED THE BED ALARM. BED ALARM WAS OFFERED SO WE WOULD KNOW IF SHE WAS GETTING UP SO WE COULD HELP HER. SHE STILL REFUSED. WILL CONTINUE TO MONITOR.
[2022-03-28 03:37] LABS: HEMOGLOBIN 11.8 gm/dl (12.3-15.3); RED BLOOD COUNT 4.04 M/UL (4.00-5.10); WHITE BLOOD COUNT 7.8 K/UL (4.5-11.0)
[2022-03-28 04:13] LABS: BUN/CREATININE RATIO 33 (0-10)
[2022-03-28 17:13] LABS: ORGANISM ID Not indicated. (.); SPECIMEN SOURCE Urine (.); STREPTOCOCCUS PNEUMONIAE AG Negative (Negative)
[2022-03-29 03:59] LABS: HEMOGLOBIN 11.9 gm/dl (12.3-15.3); RED BLOOD COUNT 4.09 M/UL (4.00-5.10); WHITE BLOOD COUNT 7.7 K/UL (4.5-11.0)
[2022-03-29 04:47] LABS: BUN/CREATININE RATIO 27 (0-10)
[2022-03-29] MEDS ORDERED: BENZONATATE100 MG PO (14:15)
[2022-03-29] MEDS ORDERED: IPRAT-ALBUT 0.5-3 ML NEB (14:15)
[2022-03-29] MEDS ORDERED: ALDACTONE 25MG25 MG PO (14:15)
[2022-03-29] MEDS ORDERED: K-TAB ER20 MEQ PO (14:30)
[2022-03-29] MEDS ORDERED: DEMADEX 20 MG T20 MG PO (14:30)
[2022-03-29] MEDS ORDERED: VIBRAMYCIN50 MG/5 ML PO (14:38)
== END 2022-03-29 18:00 | disposition home health service (06) | DRG 193 ==
LOC: ER1 12:53 → CDU 17:21 → MED SURG 4 17:21 → CDU 18:24 → MED SURG 4 21:25
PROVIDERS: Internal Medicine; Internal Medicine Nephrology; Physician Assistant; ADMIT Internal Medicine
DX: J18.9 Pneumonia, unspecified organism (principal); I50.33 Acute on chronic diastolic (congestive) heart failure; J96.01 Acute respiratory failure with hypoxia; Z20.822 Contact with and (suspected) exposure to COVID-19; E87.1 Hypo-osmolality and hyponatremia; I13.0 Hypertensive heart and chronic kidney disease with heart failure and stage 1 through stage 4 chronic kidney disease, or unspecified chronic kidney disease; E87.3 Alkalosis; J44.0 Chronic obstructive pulmonary disease with (acute) lower respiratory infection; K74.60 Unspecified cirrhosis of liver; I27.20 Pulmonary hypertension, unspecified; G47.00 Insomnia, unspecified; F41.9 Anxiety disorder, unspecified; J30.9 Allergic rhinitis, unspecified; D45 Polycythemia vera; E78.5 Hyperlipidemia, unspecified; E66.9 Obesity, unspecified; K58.9 Irritable bowel syndrome, unspecified; G25.81 Restless legs syndrome; I08.1 Rheumatic disorders of both mitral and tricuspid valves; N18.30 Chronic kidney disease, stage 3 unspecified; G40.909 Epilepsy, unspecified, not intractable, without status epilepticus; E83.39 Other disorders of phosphorus metabolism; E87.6 Hypokalemia; M19.90 Unspecified osteoarthritis, unspecified site; F32.A Depression, unspecified; K21.9 Gastro-esophageal reflux disease without esophagitis; E03.9 Hypothyroidism, unspecified; Z87.891 Personal history of nicotine dependence; Z88.0 Allergy status to penicillin; Z90.49 Acquired absence of other specified parts of digestive tract; Z90.10 Acquired absence of unspecified breast and nipple; Z90.710 Acquired absence of both cervix and uterus; Z98.51 Tubal ligation status; Z81.1 Family history of alcohol abuse and dependence; Z82.61 Family history of arthritis; Z80.3 Family history of malignant neoplasm of breast; Z80.0 Family history of malignant neoplasm of digestive organs; Z82.49 Family history of ischemic heart disease and other diseases of the circulatory system; Z91.040 Latex allergy status; Z90.13 Acquired absence of bilateral breasts and nipples
CPT/HCPCS: 0240U; 36415; 36600; 71045; 71046; 72128; 72131; 80048; 80053; 81001; 82436; 82550; 82553; 82803; 82962; 83540; 83550; 83605; 83735; 83880; 83935; 84100; 84132; 84133; 84300; 84443; 84484; 85025; 85027; 85652; 86140; 87040; 87086; 87278; 87899; 93005; 94640; 94664; 94760; 96372; 96374; 96375; 97110; 97110-GP-CQ; 97116-GP-CQ; 97161; 97165; 97530; 99285; J0456; J0690; J0696; J1120; J1650; J1756; J1940; J2185; J3480; J7030

== ENCOUNTER → 2022-03-24 | Outpatient (CLI) | payer MEDICARE, OTHER ==
[~2022-03-24] MED LIST changes: +COZAAR 50MG TAB50 MG PO; +HYDROCODON-ACE1 EAC4 PO; +JARDIANCE25 MG PO; +MYCOSTATIN OINT15 GM TOP; +NORVASC5 MG PO; +POTASSIUM CHLO20 ME2 PO; +TORSEMIDE100 MG PO
[2022-03-24 11:32] LABS: BUN/CREATININE RATIO 67 (0-10)
== END ==
LOC: LAB 10:47
PROVIDERS: Internal Medicine Nephrology
DX: N18.2 Chronic kidney disease, stage 2 (mild) (principal)
CPT/HCPCS: 36415; 80048; 83735

== ENCOUNTER 2022-04-02 14:24 | Emergency (ER) | payer MEDICARE, OTHER ==
[~2022-04-02 14:24] MED LIST changes: +ALDACTONE 25MG25 MG PO; +COZAAR 50MG TAB50 MG PO; +HYDROCODON-ACE1 EAC4 PO; +JARDIANCE25 MG PO; +K-TAB ER20 MEQ PO; +MYCOSTATIN OINT15 GM TOP; +NORVASC5 MG PO; +POTASSIUM CHLO20 ME2 PO; +TORSEMIDE100 MG PO; +VIBRAMYCIN50 MG/5 ML PO
[2022-04-02 14:58] LABS: HEMOGLOBIN 13.1 gm/dl (12.3-15.3); RED BLOOD COUNT 4.47 M/UL (4.00-5.10); WHITE BLOOD COUNT 7.3 K/UL (4.5-11.0)
[2022-04-02 16:19] LABS: BUN/CREATININE RATIO 41 (0-10)
[2022-04-02] MEDS ORDERED: LASIX40 MG PO (17:17)
== END 2022-04-02 18:30 | disposition home or self-care (01) ==
LOC: ER1 14:24
PROVIDERS: Preventive Medicine Occupational Medicine
DX: R60.0 Localized edema (principal); I25.10 Atherosclerotic heart disease of native coronary artery without angina pectoris; I11.0 Hypertensive heart disease with heart failure; I50.9 Heart failure, unspecified
CPT/HCPCS: 71045; 80053; 81001; 82550; 82553; 83690; 83880; 84484; 85025; 93005; 96374; 99284; J7030

== ENCOUNTER → 2022-04-26 | Outpatient (CLI) | payer MEDICARE, OTHER | LOC: NM 13:00 | DX: I27.20 Pulmonary hypertension, unspecified (principal); I20.9 Angina pectoris, unspecified; I11.0 Hypertensive heart disease with heart failure; I50.9 Heart failure, unspecified; R53.83 Other fatigue; R73.09 Other abnormal glucose; E55.9 Vitamin D deficiency, unspecified; R05.9 Cough, unspecified; Z51.81 Encounter for therapeutic drug level monitoring | CPT/HCPCS: 78452; 93017; A9502; J2785 ==

== ENCOUNTER → 2022-05-24 | Outpatient (CLI) | payer MEDICARE, OTHER ==
[~2022-05-24] MED LIST changes: +HYDROCHLOROTHIA25 MG PO; -LEVOTHYROXINE25 MCG PO; +POTASSIUM CHLO20 ME1 PO; +PREDNISONE 20 M20 MG PO; +REMERON15 MG PO; +SPIRONOLACTONE100 MG PO; -SPIRONOLACTONE50 MG PO
== END ==
LOC: KOH-I 10:26
DX: J84.9 Interstitial pulmonary disease, unspecified (principal)
CPT/HCPCS: 71250

== ENCOUNTER 2022-06-01 15:24 | Inpatient (IN) | payer MEDICARE, OTHER ==
[~2022-06-01] VITALS: Ht 162.6 cm; Wt 108.1 kg
[2022-06-02 00:21] LABS: HEMOGLOBIN 14.2 gm/dl (12.3-15.3); RED BLOOD COUNT 4.61 M/UL (4.00-5.10); WHITE BLOOD COUNT 11.1 K/UL (4.5-11.0)
[2022-06-02 07:04] LABS: HEMOGLOBIN 13.7 gm/dl (12.3-15.3); RED BLOOD COUNT 4.45 M/UL (4.00-5.10); WHITE BLOOD COUNT 10.7 K/UL (4.5-11.0)
[2022-06-02] MEDS ORDERED: AMLODIPINE BESYL5 MG PO (11:05)
[2022-06-02] MEDS ORDERED: HYDROCODON-ACE1 EAC4 PO (11:06)
[2022-06-02] MEDS ORDERED: COZAAR 50MG TAB50 MG PO (11:06)
[2022-06-02] MEDS ORDERED: ZOFRAN ODT 4 MG4 MG PO (11:07)
[2022-06-02] MEDS ORDERED: BACTRIM DS TAB1 EACH PO (11:07)
[2022-06-02] MEDS ORDERED: MYCOSTATIN OINT15 GM TOP (11:07)
[2022-06-03 02:46] LABS: RED BLOOD COUNT 4.54 M/UL (4.00-5.10)
[2022-06-03 02:50] LABS: WHITE BLOOD COUNT 14.6 K/UL (4.5-11.0)
[2022-06-04 03:57] LABS: HEMOGLOBIN 12.7 gm/dl (12.3-15.3); RED BLOOD COUNT 4.17 M/UL (4.00-5.10); WHITE BLOOD COUNT 14.1 K/UL (4.5-11.0)
[2022-06-05 02:58] LABS: HEMOGLOBIN 12.9 gm/dl (12.3-15.3); RED BLOOD COUNT 4.23 M/UL (4.00-5.10)
--- NOTE | 2022-06-05 12:34 | NUR ---
PT TRANSPORTED TO [facility]
--- NOTE | 2022-06-05 14:20 | NUR ---
PATIENT BACK FROM [facility]. IN STABLE CONDITION. TR BAND TO RIGHT WRIST. NO BLEEDING NOTED. PT DENIES ANY PAIN AT THIS TIME. WILL CONTINUE TO MONITOR.
--- NOTE | 2022-06-05 18:45 | NUR ---
TR BAND REMOVED FROM RIGHT WRIST. NO HEMATOMA OR BLEEDING NOTED. PT DENIES PAIN OR DISCOMFORT. TEGADERM APPLIED TO SITE. SEE POST CATH PAPER NOTE FOR FULL DOCUMENTATION OF AIR REMOVAL.
[2022-06-06 07:12] LABS: HEMOGLOBIN 13.1 gm/dl (12.3-15.3); RED BLOOD COUNT 4.28 M/UL (4.00-5.10); WHITE BLOOD COUNT 10.6 K/UL (4.5-11.0)
[2022-06-06 07:36] LABS: BUN/CREATININE RATIO 42 (0-10)
[2022-06-06] MEDS ORDERED: MEDROL DOSEPAK 24 MG PO (17:13)
--- NOTE | 2022-06-06 20:07 | NUR ---
APPROX 1944 IV LFA TAKEN OUT MANUAL PRESSURE APPLIED. GAUZE AND TAPE APPLIED AND PT TOLERATED WELL.
== END 2022-06-06 19:49 | disposition home or self-care (01) | DRG 286 ==
LOC: ER1 15:24 → OPSV 15:24 → EDSTATUS 22:58 → MED SURG 4 06-02 03:21 → CDU 06-02 03:21 → MED SURG 4 06-02 04:44
PROVIDERS: Internal Medicine; Internal Medicine Cardiovascular Disease; Internal Medicine Nephrology; Student in an Organized Health Care Education/Training Program; ADMIT Internal Medicine
PROC: B24BZZZ Ultrasonography of Heart with Aorta (ICD-10-PCS; 2022-06-02)
PROC: 4A023N7 Measurement of Cardiac Sampling and Pressure, Left Heart, Percutaneous Approach (ICD-10-PCS; principal; 2022-06-05)
PROC: B2111ZZ Fluoroscopy of Multiple Coronary Arteries using Low Osmolar Contrast (ICD-10-PCS; 2022-06-05)
DX: I13.0 Hypertensive heart and chronic kidney disease with heart failure and stage 1 through stage 4 chronic kidney disease, or unspecified chronic kidney disease (principal); I50.33 Acute on chronic diastolic (congestive) heart failure; J44.1 Chronic obstructive pulmonary disease with (acute) exacerbation; Z20.822 Contact with and (suspected) exposure to COVID-19; E66.2 Morbid (severe) obesity with alveolar hypoventilation; N17.9 Acute kidney failure, unspecified; L03.116 Cellulitis of left lower limb; L03.115 Cellulitis of right lower limb; Z68.41 Body mass index [BMI] 40.0-44.9, adult; I27.20 Pulmonary hypertension, unspecified; I27.81 Cor pulmonale (chronic); G40.909 Epilepsy, unspecified, not intractable, without status epilepticus; G25.81 Restless legs syndrome; F41.9 Anxiety disorder, unspecified; E03.9 Hypothyroidism, unspecified; D72.829 Elevated white blood cell count, unspecified; R53.81 Other malaise; E78.5 Hyperlipidemia, unspecified; N18.31 Chronic kidney disease, stage 3a; E87.6 Hypokalemia; K11.7 Disturbances of salivary secretion; M35.00 Sjogren syndrome, unspecified; K74.60 Unspecified cirrhosis of liver; D45 Polycythemia vera; Z87.09 Personal history of other diseases of the respiratory system; Z99.81 Dependence on supplemental oxygen; Z90.710 Acquired absence of both cervix and uterus; Z90.13 Acquired absence of bilateral breasts and nipples; Z88.0 Allergy status to penicillin; Z91.040 Latex allergy status; Z93.3 Colostomy status
CPT/HCPCS: ECHO; 0240U; 36415; 36600; 71045; 80048; 80053; 82550; 82553; 82803; 83540; 83550; 83735; 83880; 84439; 84443; 84484; 85025; 85027; 85379; 93005; 93306; 94640; 94664; 94760; 96365; 96366; 96374; 96375; 96376; 99152; 99153; 99285; C1751; C1769; C1894; J1205; J1250; J1644; J1940; J2250; J2920; J2930; J3010; J7040; Q9965

== ENCOUNTER 2022-06-11 14:39 | Emergency (ER) | payer MEDICARE, OTHER ==
[~2022-06-11 14:39] MED LIST changes: +BACTRIM DS TAB1 EACH PO; +MEDROL DOSEPAK 24 MG PO; +ZOFRAN ODT 4 MG4 MG PO
[2022-06-11 15:17] LABS: HEMOGLOBIN 13.9 gm/dl (12.3-15.3); RED BLOOD COUNT 4.5 M/UL (4.00-5.10)
[2022-06-11 15:42] LABS: BUN/CREATININE RATIO 27 (0-10)
[2022-06-11] MEDS ORDERED: [UNRECOGNIZED DRUG - OTHER] PO (17:51)
== END 2022-06-11 18:30 | disposition home or self-care (01) ==
LOC: ER1 14:39
PROVIDERS: Preventive Medicine Occupational Medicine
DX: R05.9 Cough, unspecified (principal); R06.02 Shortness of breath; I11.0 Hypertensive heart disease with heart failure; I50.9 Heart failure, unspecified; Z20.822 Contact with and (suspected) exposure to COVID-19
CPT/HCPCS: 0240U; 36600; 71045; 80053; 82550; 82553; 82803; 83605; 83690; 83880; 84484; 85025; 85652; 86140; 87040; 93005; 94664; 96374; 96375; 99285; J0696; J1940; J2930

== ENCOUNTER → 2022-06-27 | Outpatient (CLI) | payer MEDICARE, OTHER ==
[~2022-06-27] MED LIST changes: +[UNRECOGNIZED DRUG - OTHER] PO
== END ==
LOC: HEART 5 15:25
DX: R06.02 Shortness of breath (principal); R40.0 Somnolence
CPT/HCPCS: 94060; 94729

== ENCOUNTER 2022-07-20 16:46 | Emergency (ER) | payer MEDICARE, OTHER ==
[2022-07-20 17:49] LABS: HEMOGLOBIN 14.1 gm/dl (12.3-15.3); RED BLOOD COUNT 4.62 M/UL (4.00-5.10); WHITE BLOOD COUNT 11.6 K/UL (4.5-11.0)
== END 2022-07-20 18:14 | disposition left against medical advice (07) ==
LOC: ER1 16:46
PROVIDERS: Family Medicine
DX: L53.9 Erythematous condition, unspecified (principal); M79.89 Other specified soft tissue disorders
CPT/HCPCS: 71045; 80053; 82550; 82553; 83880; 84484; 85025; 93005; 99281

== ENCOUNTER → 2022-07-27 | Outpatient (CLI) | payer MEDICARE, OTHER | LOC: SLEEP 13:57 | DX: G47.33 Obstructive sleep apnea (adult) (pediatric) (principal); R06.83 Snoring; R09.02 Hypoxemia | CPT/HCPCS: 95810 ==